=== PATIENT | female | born 1955 | race Caucasian/White ===

== ENCOUNTER 2017-10-14 11:36 | Outpatient (CLI) | payer MEDICARE ==
--- NOTE | 2017-10-14 15:25 | MRI ---
MRI OF THE PELVIS WITH AND WITHOUT CONTRAST: INDICATION: Pelvic pressure and pelvic mass. COMPARISON: Transvaginal pelvic ultrasound from 10/05/17. TECHNIQUE: Multiplanar, multisequence MR images were obtained of the pelvis with and without IV contrast utilizi ng 14 cc of MultiHance. FINDINGS: Corresponding to the hypoechoic mass seen within the uterine fundus on a comparison examination, ther e is a 2.4 x 2.3 cm fibroid within the right uterine fundus. No additional focal uterine mass-like o pacity is noted. The visualized aspects of the bladder, rectum, and perirectal soft tissues are unre markable. No free fluid is evident. There is postsurgical change involving the L5-S1 intervertebral level. No additional area of abnormal enhancement is noted. IMPRESSION: 1. Fibroid uterus. 2. No additional abnormality. POS: [facility]
== END 2017-10-14 11:37 | disposition home or self-care (01) ==
LOC: MRI 11:36
PROVIDERS: ATTEND Family Medicine
DX: R10.2 Pelvic and perineal pain (principal); R19.00 Intra-abdominal and pelvic swelling, mass and lump, unspecified site; D25.9 Leiomyoma of uterus, unspecified
CPT/HCPCS: 72197

== ENCOUNTER 2025-02-16 10:28 | Outpatient (CLI) | payer OTHER | END 2025-02-16 10:29 | disposition home or self-care (01) | LOC: SCSRAD 10:28 | PROVIDERS: ATTEND Family Medicine | DX: R05.3 Chronic cough (principal) | CPT/HCPCS: 71046 ==